=== PATIENT | male | born 1980 | race Caucasian/White ===

== ENCOUNTER 2018-07-27 22:19 | Inpatient (IN) | payer OTHER ==
[~2018-07-27] VITALS: Ht 172.7 cm; Wt 81.6 kg
[~2018-07-27 22:19] MED LIST: Asa-EC 81MG TAB PO; CARDIZEM PO; CARDIZEM30 MG PO; LEVSIN/SL0.125 MG SL; MIRALAX510 GM PO; PROTONIX40 MG PO
[2018-07-27] MEDS ORDERED: TOPROL XL25 MG (22:37)
[2018-07-28] MEDS ORDERED: CARDIZEM60 MG PO (11:00)
[2018-07-28] MEDS ORDERED: ASA-EC81 MG PO (11:00)
== END 2018-07-30 16:13 | disposition home or self-care (01) | DRG 310 ==
LOC: ER 22:19 → MEDI 07-28 08:52
PROVIDERS: ADMIT Internal Medicine
PROC: B246ZZZ Ultrasonography of Right and Left Heart (ICD-10-PCS; principal; 2018-07-28)
PROC: 4A12X4Z Monitoring of Cardiac Electrical Activity, External Approach (ICD-10-PCS; 2018-07-28)
DX: I48.0 Paroxysmal atrial fibrillation (principal); D72.828 Other elevated white blood cell count; Z79.01 Long term (current) use of anticoagulants; I47.1 Supraventricular tachycardia; R07.89 Other chest pain; I11.9 Hypertensive heart disease without heart failure; F41.9 Anxiety disorder, unspecified

== ENCOUNTER 2018-11-18 17:47 | Emergency (ER) | payer OTHER ==
[~2018-11-18] VITALS: Ht 172.7 cm; Wt 77.1 kg
[~2018-11-18 17:47] MED LIST changes: +ASA-EC81 MG PO; +CARDIZEM60 MG PO; +TOPROL XL25 MG
== END 2018-11-18 20:35 | disposition home or self-care (01) ==
LOC: ER 17:47
DX: R07.89 Other chest pain (principal); F06.4 Anxiety disorder due to known physiological condition

== ENCOUNTER 2019-10-23 20:57 | Emergency (ER) | payer OTHER ==
[~2019-10-23] VITALS: Ht 172.7 cm; Wt 80.7 kg
[2019-10-23] MEDS ORDERED: ASPIRIN EC325 MG PO (21:05)
[2019-10-23] MEDS ORDERED: AMIODARONE HCL200 MG PO (21:06)
[2019-10-23] MEDS ORDERED: CARDIZEM CD240 MG PO (21:07)
== END 2019-10-23 22:27 | disposition home or self-care (01) ==
LOC: ER 20:57
DX: R07.89 Other chest pain (principal)

== ENCOUNTER 2020-03-20 09:29 | Emergency (ER) | payer OTHER ==
[~2020-03-20] VITALS: Ht 175.3 cm; Wt 81.6 kg
[~2020-03-20 09:29] MED LIST changes: +AMIODARONE HCL200 MG PO; +ASPIRIN EC325 MG PO; +CARDIZEM CD240 MG PO
== END 2020-03-20 11:28 | disposition home or self-care (01) ==
LOC: ER 09:29
DX: K29.60 Other gastritis without bleeding (principal)

== ENCOUNTER 2020-04-19 06:00 | Day surgery (SDC) | payer OTHER ==
[~2020-04-19 06:00] MED LIST changes: +ECOTRIN325 M1 PO
[2020-04-19] MEDS ORDERED: ULTRACET PO (08:08)
[2020-04-19] MEDS ORDERED: DUI500 PO (08:08)
== END 2020-04-19 12:45 | disposition home or self-care (01) ==
LOC: CIR.AMB 06:00
PROVIDERS: ATTEND Orthopaedic Surgery
DX: S83.241A Other tear of medial meniscus, current injury, right knee, initial encounter (principal); Z20.828 Contact with and (suspected) exposure to other viral communicable diseases

== ENCOUNTER 2020-06-15 08:31 | Emergency (ER) | payer OTHER ==
[~2020-06-15] VITALS: Ht 172.7 cm; Wt 79.4 kg
[~2020-06-15 08:31] MED LIST changes: +DUI500 PO; +ULTRACET PO
[2020-06-15] MEDS ORDERED: INTESTINEX680 M1 PO (14:50)
[2020-06-15] MEDS ORDERED: LANSOPRAZOLE30 MG PO (14:50)
== END 2020-06-15 14:59 | disposition home or self-care (01) ==
LOC: ER 08:31
DX: K29.70 Gastritis, unspecified, without bleeding (principal); K52.9 Noninfective gastroenteritis and colitis, unspecified; E86.0 Dehydration; R00.2 Palpitations

== ENCOUNTER 2020-06-20 13:14 | Emergency (ER) | payer OTHER ==
[~2020-06-20] VITALS: Ht 172.7 cm; Wt 77.1 kg
[~2020-06-20 13:14] MED LIST changes: +INTESTINEX680 M1 PO; +LANSOPRAZOLE30 MG PO
[2020-06-20] MEDS ORDERED: DILTIAZEM ER120 M2 PO (13:57)
[2020-06-20] MEDS ORDERED: XARELTO20 MG PO (13:57)
[2020-06-20] MEDS ORDERED: CARAFATE1 GM PO (18:22)
[2020-06-20] MEDS ORDERED: LEVSIN/SL0.125 MG SL (18:22)
[2020-06-20] MEDS ORDERED: PEPCID AC10 MG PO (18:22)
== END 2020-06-20 19:14 | disposition home or self-care (01) ==
LOC: ER 13:14
DX: K29.60 Other gastritis without bleeding (principal); R10.13 Epigastric pain; Z03.818 Encounter for observation for suspected exposure to other biological agents ruled out

== ENCOUNTER 2020-06-22 07:35 | Emergency (ER) | payer OTHER ==
[~2020-06-22] VITALS: Ht 172.7 cm; Wt 77.1 kg
[~2020-06-22 07:35] MED LIST changes: +CARAFATE1 GM PO; +DILTIAZEM ER120 M2 PO; +PEPCID AC10 MG PO; +XARELTO20 MG PO
== END 2020-06-22 11:51 | disposition home or self-care (01) ==
LOC: ER 07:35
DX: K29.60 Other gastritis without bleeding (principal)

== ENCOUNTER 2023-04-06 13:57 | Emergency (ER) | payer OTHER ==
[~2023-04-06] VITALS: Ht 175.3 cm; Wt 88.0 kg
[2023-04-06] MEDS ORDERED: ECOTRIN325 M1 (14:25)
[2023-04-06 16:57] LABS: PH,URINE 6.5 (5.0-8.0); URINE APPEARANCE Clear; URINE BILIRRUBIN Negative (NEGATIVE); URINE BLOOD Negative; URINE COLOR Yellow; URINE GLUCOSE Negative (NEGATIVE); URINE LEUKOCYTE Negative; URINE NITRATE Negative; URINE PROTEIN Negative (NEGATIVE); URINE UROBILINOGEN 0.2 E.U./dl
[2023-04-06 17:06] LABS: HEMATOCRIT 43.6 % (39.0-48.0); HEMOGLOBIN 14.9 g/dL (13-16.00); MEAN CELL VOLUME 84.9 fL (80.0-100.00); MEAN CORPUSCULAR HEMOGLOBIN 29.1 pg (27.00-32.0); MEAN CORPUSCULAR HGB CONC 34.3 g/dl (32.0-36.0); PLATELET COUNT 284 K/uL (150-450); RED BLOOD COUNT 5.13 M/uL (4.00-6.00); RED CELL DISTRIBUTION WIDTH 13.4 % (11.5-14.5)
[2023-04-06 17:30] LABS: URINE BACTERIA 1.2 uL (0.0-1933); URINE RBC 1.4 uL (0.0-20.8); URINE WBC 0.7 uL (0.0-23.2)
[2023-04-06 17:33] LABS: CREATININE SERUM 0.97 mg/dL (0.70-1.30); GFR 85.29; POTASSIUM 4.63 mEq/L (3.5-5.1)
== END 2023-04-06 17:58 | disposition home or self-care (01) ==
LOC: ER 13:57
PROVIDERS: General Practice
DX: I48.91 Unspecified atrial fibrillation (principal); E86.0 Dehydration; I10 Essential (primary) hypertension

== ENCOUNTER 2023-06-02 08:11 | Emergency (ER) | payer OTHER ==
[~2023-06-02] VITALS: Ht 175.3 cm; Wt 88.0 kg
[~2023-06-02 08:11] MED LIST changes: +ECOTRIN325 M1
[2023-06-02 09:42] LABS: HEMATOCRIT 42.8 % (39.0-48.0); HEMOGLOBIN 14.8 g/dL (13-16.00); MEAN CELL VOLUME 87.1 fL (80.0-100.00); MEAN CORPUSCULAR HGB CONC 34.5 g/dl (32.0-36.0); PLATELET COUNT 245 K/uL (150-450); RED BLOOD COUNT 4.91 M/uL (4.00-6.00)
[2023-06-02 09:56] LABS: CALCIUM 8.5 mg/dL (8.5-10.1); CREATININE SERUM 1.07 mg/dL (0.70-1.30); GFR 76.16; POTASSIUM 4.65 mEq/L (3.5-5.1)
== END 2023-06-02 12:38 | disposition home or self-care (01) ==
LOC: ER 08:11
PROVIDERS: General Practice
DX: K29.70 Gastritis, unspecified, without bleeding (principal); I10 Essential (primary) hypertension

== ENCOUNTER 2023-06-08 02:14 | Emergency (ER) | payer OTHER ==
[~2023-06-08] VITALS: Ht 175.3 cm; Wt 86.2 kg
[2023-06-08 05:11] LABS: ALBUMIN 3.8 gm/dL (3.4-5.0); BILIRUBIN TOTAL 0.8 mg/dL (0.3-1.2); CALCIUM 8.5 mg/dL (8.5-10.1); CREATININE SERUM 0.98 mg/dL (0.70-1.30); GFR 84.29; POTASSIUM 3.85 mEq/L (3.5-5.1); TOTAL PROTEIN 6.8 gm/dL (6.4-8.2)
[2023-06-08 05:12] LABS: HEMATOCRIT 43.6 % (39.0-48.0); HEMOGLOBIN 15.2 g/dL (13-16.00); MEAN CELL VOLUME 86.3 fL (80.0-100.00); MEAN CORPUSCULAR HEMOGLOBIN 30.2 pg (27.00-32.0); PLATELET COUNT 274 K/uL (150-450); RED BLOOD COUNT 5.05 M/uL (4.00-6.00); RED CELL DISTRIBUTION WIDTH 13.4 % (11.5-14.5)
[2023-06-08] MEDS ORDERED: CIPRO500 MG PO (08:52)
[2023-06-08] MEDS ORDERED: INTESTINEX680 M1 PO (08:52)
[2023-06-08] MEDS ORDERED: PEPCID AC20 MG PO (08:52)
[2023-06-08] MEDS ORDERED: DICY20TA PO (08:52)
== END 2023-06-08 08:55 | disposition home or self-care (01) ==
LOC: ER 02:14
PROVIDERS: General Practice
DX: K52.89 Other specified noninfective gastroenteritis and colitis (principal); R10.84 Generalized abdominal pain

== ENCOUNTER 2023-09-29 16:14 | Emergency (ER) | payer OTHER ==
[~2023-09-29] VITALS: Ht 175.3 cm; Wt 86.2 kg
[~2023-09-29 16:14] MED LIST changes: +CIPRO500 MG PO; +DICY20TA PO; +PEPCID AC20 MG PO
[2023-09-29] MEDS ORDERED: DILTIAZEM 24HR240 MG PO (16:38)
[2023-09-29 16:57] LABS: HEMATOCRIT 41.6 % (39.0-48.0); HEMOGLOBIN 14.4 g/dL (13-16.00); MEAN CELL VOLUME 86.2 fL (80.0-100.00); MEAN CORPUSCULAR HEMOGLOBIN 29.9 pg (27.00-32.0); MEAN CORPUSCULAR HGB CONC 34.7 g/dl (32.0-36.0); PLATELET COUNT 248 K/uL (150-450); RED BLOOD COUNT 4.83 M/uL (4.00-6.00); RED CELL DISTRIBUTION WIDTH 13.1 % (11.5-14.5)
[2023-09-29 17:24] LABS: CALCIUM 7.7 mg/dL (8.5-10.1); CREATININE SERUM 0.92 mg/dL (0.70-1.30); GFR 90.66; POTASSIUM 3.39 mEq/L (3.5-5.1)
[2023-09-29 17:36] LABS: ABG PH 7.429 (7.35-7.45); ABG PO2 85.7 mmHg (80-100); ABG pCO2 31.9 mmHg (35-45); BASE EXCESS -2.6 mmol/l; BICARBONATE 20.6 mmol/l (23-25); SaO2 96.7 %; Tco2 21.6 mmol/l
[2023-09-29 17:37] LABS: allen test SATISFACTORY; o2 21 %; puncture site RADIAL RIGHT
[2023-09-29] MEDS ORDERED: 0.9 % SODIUM CHLORIDE 1,000 ML IV SCH (18:00)
== END 2023-09-29 22:06 | disposition home or self-care (01) ==
LOC: ER 16:14
PROVIDERS: Emergency Medicine
DX: K52.89 Other specified noninfective gastroenteritis and colitis (principal)

== ENCOUNTER 2024-02-05 04:22 | Emergency (ER) | payer OTHER ==
[~2024-02-05] VITALS: Ht 175.3 cm; Wt 85.3 kg
[~2024-02-05 04:22] MED LIST changes: +DILTIAZEM 24HR240 MG PO
[2024-02-05] MEDS ORDERED: FAMOTIDINE20 MG PO (04:35)
[2024-02-05] MEDS ORDERED: DILTIAZEM 24HR180 MG PO (04:35)
[2024-02-05 05:35] LABS: ALBUMIN 3.8 gm/dL (3.4-5.0); BILIRUBIN TOTAL 0.47 mg/dL (0.3-1.2); CALCIUM 8.3 mg/dL (8.5-10.1); CREATININE SERUM 0.92 mg/dL (0.70-1.30); GFR 90.22; POTASSIUM 3.89 mEq/L (3.5-5.1); TOTAL PROTEIN 6.8 gm/dL (6.4-8.2)
[2024-02-05 05:51] LABS: INR 1.06; PARTIAL THROMBOPLASTIN TIME 26.4 SECONDS (22.0-34.0); PROTHROMBIN TIME 11.1 SECONDS (9.0-11.5)
[2024-02-05] MEDS ORDERED: hydrOXYzine PAMOATE 50 MG CAPSULE PO STA (06:14)
[2024-02-05 06:15] LABS: HEMATOCRIT 41.7 % (39.0-48.0); HEMOGLOBIN 14.5 g/dL (13-16.00); MEAN CELL VOLUME 86.7 fL (80.0-100.00); MEAN CORPUSCULAR HEMOGLOBIN 30.2 pg (27.00-32.0); MEAN CORPUSCULAR HGB CONC 34.8 g/dl (32.0-36.0); PLATELET COUNT 280 K/uL (150-450); RED CELL DISTRIBUTION WIDTH 13.2 % (11.5-14.5)
[2024-02-05] MEDS ORDERED: FAMOTIDINE/PF 20 MG/2 ML VIAL IV PUSH STA (07:27)
[2024-02-05] MEDS ORDERED: PEPCID40 MG PO (08:11)
[2024-02-05] MEDS ORDERED: LEVSIN/SL0.125 MG SL ×2 (08:11)
== END 2024-02-05 08:18 ==
LOC: ER 04:23
PROVIDERS: General Practice
DX: R10.13 Epigastric pain (principal); R00.2 Palpitations

== ENCOUNTER 2024-05-09 09:48 | Emergency (ER) | payer OTHER ==
[~2024-05-09] VITALS: Ht 175.3 cm; Wt 85.3 kg
[~2024-05-09 09:48] MED LIST changes: +DILTIAZEM 24HR180 MG PO; +FAMOTIDINE20 MG PO; +PEPCID40 MG PO
[2024-05-09] MEDS ORDERED: 0.9 % SODIUM CHLORIDE 1,000 ML IV STA (10:29)
[2024-05-09 11:00] LABS: HEMATOCRIT 48.9 % (39.0-48.0); HEMOGLOBIN 17.1 g/dL (13-16.00); MEAN CELL VOLUME 85.4 fL (80.0-100.00); MEAN CORPUSCULAR HEMOGLOBIN 29.9 pg (27.00-32.0); MEAN CORPUSCULAR HGB CONC 35.1 g/dl (32.0-36.0); PLATELET COUNT 285 K/uL (150-450); RED BLOOD COUNT 5.73 M/uL (4.00-6.00); RED CELL DISTRIBUTION WIDTH 13.7 % (11.5-14.5)
[2024-05-09 11:23] LABS: CALCIUM 8.8 mg/dL (8.5-10.1); CREATININE SERUM 1.08 mg/dL (0.70-1.30); GFR 74.98; POTASSIUM 4.79 mEq/L (3.5-5.1)
[2024-05-09 11:47] LABS: URINE APPEARANCE Clear; URINE BILIRRUBIN Negative (NEGATIVE); URINE BLOOD Negative; URINE COLOR Yellow; URINE GLUCOSE Negative (NEGATIVE); URINE KETONE Trace (NEGATIVE); URINE LEUKOCYTE Negative; URINE NITRATE Negative; URINE PROTEIN Trace (NEGATIVE); URINE UROBILINOGEN 0.2 E.U./dl
[2024-05-09 11:48] LABS: URINE BACTERIA 40.3 uL (0.0-1933); URINE EPITHELIAL CELLS 7.2 uL (0.0-38.8); URINE RBC 3.8 uL (0.0-20.8); URINE WBC 5.8 uL (0.0-23.2)
[2024-05-09 11:56] LABS: URINE CAST 1.06 uL (0.0-1.40)
== END 2024-05-09 13:54 | disposition home or self-care (01) ==
LOC: ER 09:50
PROVIDERS: Emergency Medicine
DX: K52.89 Other specified noninfective gastroenteritis and colitis (principal); I10 Essential (primary) hypertension; K21.9 Gastro-esophageal reflux disease without esophagitis
CPT/HCPCS: 36415; 96365; 96366; 99282; J7030

== ENCOUNTER 2024-05-31 16:52 | Inpatient (IN) | payer OTHER ==
[~2024-05-31] VITALS: Ht 175.3 cm; Wt 81.6 kg
[2024-05-31] MEDS ORDERED: COZAAR25 MG (17:03)
--- NOTE | 2024-05-31 17:14 | NUR ---
PTE ALERTA Y ORIENTADO X3, REFIERE TERMINANDO DE COMER SE COMENZO A SENTIR MAREADO, SUDOROSO, DEBIL Y CON MUCHAS NAUSEAS SIN VOMITOS. AL MOMENTO DE TRIAGE PTE PRESENTA UN KERLINE VOMITO. SE REALIZA EKG Y SE PRESENTA Y REFIERE UBICAR EN FAST TRACK. SE LIANA SV, DXT Y SE UBICA PTE EN FT.
[2024-05-31] MEDS ORDERED: ONDANSETRON HCL 2 MG/ML VIAL IV ONE (17:30)
--- NOTE | 2024-05-31 17:42 | NUR ---
PTE ALERTA Y ORIENTADO X3, RN MCNALLY EDUCA SOBRE TX MEDICO Y EL MISMO SREFIERE ACEPTAR. COLECTA MUESTRAS DE LAB Y ADMINISTRA MEDS JOCELYN ORDEN MEDICA Y PTE NO PRESENTA REACCION
[2024-05-31 18:05] LABS: HEMOGLOBIN 14.9 g/dL (13-16.00); MEAN CORPUSCULAR HEMOGLOBIN 29.1 pg (27.00-32.0); MEAN CORPUSCULAR HGB CONC 33.9 g/dl (32.0-36.0); PLATELET COUNT 371 K/uL (150-450); RED BLOOD COUNT 5.12 M/uL (4.00-6.00); RED CELL DISTRIBUTION WIDTH 13.9 % (11.5-14.5)
[2024-05-31 18:19] LABS: ALBUMIN 3.7 gm/dL (3.4-5.0); BILIRUBIN TOTAL 0.4 mg/dL (0.3-1.2); CALCIUM 8.4 mg/dL (8.5-10.1); CREATININE SERUM 0.92 mg/dL (0.70-1.30); GFR 90.22; GLOBULINA 3.5 G/DL (2.4-3.5); TOTAL PROTEIN 7.2 gm/dL (6.4-8.2)
[2024-05-31 18:25] LABS: POTASSIUM 2.87 mEq/L (3.5-5.1)
[2024-05-31] MEDS ORDERED: POTASSIUM CHLORIDE IN 0.9%NACL 1,000 ML IV ONE (19:30)
[2024-05-31] MEDS ORDERED: ACETAMINOPHEN 325 MG TABLET PO PRN (22:00)
[2024-05-31] MEDS ORDERED: ONDANSETRON HCL 4 MG in 0.9 % SODIUM CHLORIDE 50 ML IV PRN (22:00)
[2024-05-31] MEDS ORDERED: 0.9 % SODIUM CHLORIDE 1,000 ML IV SCH (22:00)
[2024-06-01] MEDS ORDERED: POTASSIUM CHLORIDE IN WATER 40 MEQ/100 ML PIGGYBAG IV SCH
[2024-06-01 01:59] LABS: INR 1.07; PROTHROMBIN TIME 11.6 SECONDS (9.0-11.5)
[2024-06-01 02:10] VITALS: BP 97/47; O2SAT 100
[2024-06-01] MEDS ORDERED: ACETAMINOPHEN 500 MG GEL..CAP PO PRN (06:45)
[2024-06-01 09:00] VITALS: BP 117/70; O2SAT 97
[2024-06-01] MEDS ORDERED: DILTIAZEM HCL 240 MG CAP.SR.24H PO SCH (09:00)
[2024-06-01] MEDS ORDERED: FAMOTIDINE/PF 20 MG/2 ML VIAL IV SCH (09:00)
[2024-06-01 10:12] LABS: PH,URINE 5.5 (5.0-8.0); URINE APPEARANCE Clear; URINE BILIRRUBIN Negative (NEGATIVE); URINE BLOOD Negative; URINE COLOR Yellow; URINE KETONE Negative (NEGATIVE); URINE LEUKOCYTE Negative; URINE NITRATE Negative; URINE PROTEIN Negative (NEGATIVE); URINE UROBILINOGEN 0.2 E.U./dl
[2024-06-01 10:14] LABS: URINE BACTERIA 11.3 uL (0.0-1933); URINE EPITHELIAL CELLS 3.2 uL (0.0-38.8); URINE RBC 4.1 uL (0.0-20.8); URINE WBC 7.2 uL (0.0-23.2)
[2024-06-01 10:24] LABS: URINE GLUCOSE 100 MG/DL (NEGATIVE)
[2024-06-01 11:54] LABS: HEMATOCRIT 43.9 % (39.0-48.0); HEMOGLOBIN 14.5 g/dL (13-16.00); MEAN CELL VOLUME 87.7 fL (80.0-100.00); MEAN CORPUSCULAR HGB CONC 33.1 g/dl (32.0-36.0); PLATELET COUNT 334 K/uL (150-450)
[2024-06-01] MEDS ORDERED: MAGNESIUM SULFATE IN WATER 50 ML IV NR (14:00)
[2024-06-01] MEDS ORDERED: LOSARTAN POTASSIUM 25 MG TABLET PO SCH (17:00)
[2024-06-01 18:34] VITALS: BP 140/80
[2024-06-02 01:35] VITALS: BP 123/81; O2SAT 98
[2024-06-02 06:46] LABS: CALCIUM 8.1 mg/dL (8.5-10.1); CREATININE SERUM 0.83 mg/dL (0.70-1.30); GFR 101.6; MAGNESIUM 2.2 mg/dL (1.8-2.4)
[2024-06-02 09:45] VITALS: BP 144/89; O2SAT 99
== END 2024-06-02 12:14 | disposition home or self-care (01) | DRG 641 ==
LOC: ER 16:53 → MEDJ 21:55
PROVIDERS: General Practice; Internal Medicine; Preventive Medicine Public Health & General Preventive Medicine; ADMIT Internal Medicine; ATTEND Internal Medicine
DX: E87.6 Hypokalemia (principal); I48.91 Unspecified atrial fibrillation

== ENCOUNTER 2024-08-17 14:52 | Inpatient (IN) | payer OTHER ==
[~2024-08-17] VITALS: Ht 175.3 cm; Wt 82.6 kg
[~2024-08-17 14:52] MED LIST changes: +COZAAR25 MG
--- NOTE | 2024-08-17 15:11 | NUR ---
SE RECIBE PTE ALERTA Y ORIENTADO X3. PTE REFIERE DOLOR DE PECHO. SE REALIZA EKG , SE MIDEN S/V Y SE UBICA EN AREA DE CRITICO.
[2024-08-17] MEDS ORDERED: 0.9 % SODIUM CHLORIDE 1,000 ML IV SCH ×2 (15:15→20:00)
[2024-08-17] MEDS ORDERED: DILTIAZEM HCL 25 MG/5 ML VIAL IV ONE ×4 (15:15→15:30)
--- NOTE | 2024-08-17 15:15 | NUR ---
SE RECIBE PACIENTE MASCULINO ALERTA Y ORIENTADO X 3 ESFERAS DEL AREA DE TRIAGE A LA UNIDAD DE ICU 2. SE CONECTA A MONITOR CARDIACO Y OXIMETRIA DE PULSO. SE REALIZAN MUESTRAS DE LABORATORIO BAJO MEDIDAS ASEPTICAS. SE ADMINISTRA CARDIZEM 25MG IV PUSH POR ORDEN MEDICA DEL . PACIENTE CONTINUA CON PULSO EN 138/MIN. SE ADMINISTRA CARDIZEM 20MG IV PUSH JOCELYN ORDEN MEDICA. PACIENTE CONTINUA CON PULSO 140/MIN, SE ADMINISTRA CORDARONE 150MG IV EN 50ML A BAJAR EN 20MIN Y LUEGO SE COMIENZA DRIP DE NEXTERONE 360MG/200ML A BAJAR A 33 POR 6 HORAS Y LUEGO A 16ML POR 18HR. SE ORIENTO A PACIENTE SOBRE TRATAMIENTO MEDICO, REFIERE ENTENDER. SE MANTIENE BAJO OBSERVACION.
[2024-08-17] MEDS ORDERED: AMIODARONE IN DEXTROSE,ISO-OSM 360 MG/200 ML IV.SOLN IV ONE ×2 (15:27→20:27)
[2024-08-17] MEDS ORDERED: AMIODARONE HCL 50 MG/ML AMPUL IV ONE ×2 (15:27→15:30)
[2024-08-17 15:51] LABS: HEMATOCRIT 44.5 % (39.0-48.0); HEMOGLOBIN 15.3 g/dL (13-16.00); MEAN CELL VOLUME 84.7 fL (80.0-100.00); MEAN CORPUSCULAR HEMOGLOBIN 29.2 pg (27.00-32.0); MEAN CORPUSCULAR HGB CONC 34.4 g/dl (32.0-36.0); PLATELET COUNT 294 K/uL (150-450); RED BLOOD COUNT 5.25 M/uL (4.00-6.00); RED CELL DISTRIBUTION WIDTH 13.7 % (11.5-14.5)
[2024-08-17 16:15] LABS: INR 1.05; PARTIAL THROMBOPLASTIN TIME 24.8 SECONDS (22.0-34.0); PROTHROMBIN TIME 11.4 SECONDS (9.0-11.5)
[2024-08-17 16:28] LABS: ALBUMIN 3.8 gm/dL (3.4-5.0); BILIRUBIN TOTAL 0.57 mg/dL (0.3-1.2); CALCIUM 8.5 mg/dL (8.5-10.1); CREATININE SERUM 0.95 mg/dL (0.70-1.30); GFR 86.94; POTASSIUM 4.58 mEq/L (3.5-5.1); TOTAL PROTEIN 6.8 gm/dL (6.4-8.2); TSH 1.86 uIU/mL (0.358-3.74)
[2024-08-17] MEDS ORDERED: LABETALOL HCL 200 MG/40 ML VIAL IV ONE (17:30)
[2024-08-17] MEDS ORDERED: ACETAMINOPHEN 500 MG GEL..CAP PO PRN (20:00)
[2024-08-17] MEDS ORDERED: ENOXAPARIN SODIUM 80 MG/0.8 ML SYRINGE SUBCUTANEO ONE (20:26)
[2024-08-17] MEDS ORDERED: FAMOTIDINE/PF 20 MG/2 ML VIAL ONE (20:26)
[2024-08-17 20:39] VITALS: BP 145/83; O2SAT 98
[2024-08-17 20:48] LABS: BILIRUBIN TOTAL 0.35 mg/dL (0.3-1.2); BILIRUBIN,CONJUGATED < 0.10 mg/dL (0.0-0.2); BILIRUBIN,UNCONJUGATED 0.25 mg/dL (0.0-0.6)
[2024-08-17] MEDS ORDERED: ENOXAPARIN SODIUM 80 MG/0.8 ML SYRINGE SUBCUTANEO SCH (21:00)
[2024-08-17 21:05] VITALS: BP 141/82; O2SAT 98
[2024-08-17] MEDS ORDERED: FAMOTIDINE/PF 20 MG/2 ML VIAL IV PUSH STA (21:05)
[2024-08-17 21:54] VITALS: BP 120/79; O2SAT 98
[2024-08-17 22:00] VITALS: BP 124/78; O2SAT 97
[2024-08-17 23:24] LABS: PH,URINE 6.5 (5.0-8.0); URINE APPEARANCE Clear; URINE BILIRRUBIN Negative (NEGATIVE); URINE BLOOD Negative; URINE COLOR Yellow; URINE GLUCOSE Negative (NEGATIVE); URINE KETONE Negative (NEGATIVE); URINE LEUKOCYTE Negative; URINE NITRATE Negative; URINE PROTEIN Negative (NEGATIVE); URINE UROBILINOGEN 0.2 E.U./dl
[2024-08-17 23:28] LABS: URINE BACTERIA 6.1 uL (0.0-1933)
[2024-08-18] VITALS (12 sets, daily range): BP systolic 90–142; BP diastolic 67–90; O2SAT 97–99
[2024-08-18 00:21] LABS: URINE EPITHELIAL CELLS 0.3 uL (0.0-38.8); URINE WBC 0.9 uL (0.0-23.2)
[2024-08-18] MEDS ORDERED: AMIODARONE IN DEXTROSE,ISO-OSM 360 MG/200 ML IV.SOLN IV ONE (05:16)
[2024-08-18] MEDS ORDERED: FAMOTIDINE/PF 20 MG in 0.9 % SODIUM CHLORIDE 8 ML IV PUSH SCH (09:00)
[2024-08-18] MEDS ORDERED: LOSARTAN POTASSIUM 25 MG TABLET PO SCH (09:00)
[2024-08-18] MEDS ORDERED: AMIODARONE HCL 200 MG TABLET PO SCH (17:00)
[2024-08-19 00:25] VITALS: BP 121/69
[2024-08-19 07:47] LABS: CHOL HDL RATIO 4.6 (0-5.0); T4 FREE 0.99 NG/ML (0.76-1.46)
[2024-08-19 07:51] LABS: TSH 5.52 uIU/mL (0.358-3.74)
[2024-08-19 08:39] VITALS: BP 121/77; O2SAT 99
[2024-08-19] MEDS ORDERED: FAMOTIDINE/PF 20 MG/2 ML VIAL ONE (08:57)
[2024-08-19] MEDS ORDERED: APIXABAN 5 MG TABLET PO NR (10:35)
[2024-08-19] MEDS ORDERED: APIXABAN 5 MG TABLET PO SCH (17:00)
[2024-08-19 17:28] VITALS: BP 140/85; O2SAT 100
[2024-08-20] VITALS: BP 122/75; O2SAT 99
[2024-08-20 08:14] VITALS: BP 110/70
[2024-08-20] MEDS ORDERED: FAMOTIDINE/PF 20 MG/2 ML VIAL ONE (08:47)
[2024-08-20 15:30] VITALS: BP 139/80
[2024-08-20] MEDS ORDERED: ELIQUIS5 MG PO (16:18)
[2024-08-20] MEDS ORDERED: LOSARTAN POTASS25 MG PO (16:18)
[2024-08-20] MEDS ORDERED: AMIODARONE HCL200 MG PO (16:18)
== END 2024-08-20 16:43 | disposition home or self-care (01) | DRG 310 ==
LOC: ER 14:55 → ICU-2 20:26 → MEDI 08-18 16:37
PROVIDERS: General Practice; ADMIT Internal Medicine; ATTEND Internal Medicine
PROC: B24BZZZ Ultrasonography of Heart with Aorta (ICD-10-PCS; 2024-08-17)
PROC: 4A12X4Z Monitoring of Cardiac Electrical Activity, External Approach (ICD-10-PCS; principal; 2024-08-18)
DX: I48.20 Chronic atrial fibrillation, unspecified (principal); I48.0 Paroxysmal atrial fibrillation; I11.9 Hypertensive heart disease without heart failure; E78.5 Hyperlipidemia, unspecified